=== PATIENT | male | born 1950 | race Caucasian/White ===

== ENCOUNTER 2016-12-27 23:12 | Emergency (ER) | payer OTHER ==
[2016-12-27 23:30] VITALS: BP 161/104; PULSE 94; TEMP 99.3; BMI 22.4
[2016-12-27] MEDS ORDERED: DOXYCYCLINE HYCLATE 100 MG CAPSULE PO ONE ×2 (23:47→23:48)
--- NOTE | 2016-12-27 23:51 | PDOC ---
History of Present Illness - General Chief Complaint: Pain, Acute Stated Complaint: I HAVE AN INFECTION Time Seen by Provider: 12/27/16 23:14 History Source: Patient Exam Limitations: No Limitations - History of Present Illness Initial Comments: 12/27/16 23:47 66y M history of DM, CAD s/p 2 stents, presents with complaint of worsening back pain/nodule for the past 5 days. The pt endorses subjective fvers, states he treated himself with amoxicillin without significant improvement, then started levaquin. The pt endorses subjective fever today some came to the ED for evaluation. The patient states it may have started off as a bug bite. 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 Past History - Past Medical History Allergies/Adverse Reactions: Allergies Allergy/AdvReac Type Severity Reaction Status Date / Time No Known Allergies Allergy Verified 12/27/16 23:19 Home Medications: Ambulatory Orders Amlodipine Besylate [Norvasc -] 5 mg PO DAILY 12/27/16 Atorvastatin Ca [Lipitor] 40 mg PO HS 12/27/16 Carvedilol [Coreg] 12.5 mg PO BID 12/27/16 Clopidogrel Bisulfate [Plavix -] 75 mg PO DAILY 12/27/16 Doxycycline Hyclate 100 mg PO BID #19 capsule 12/27/16 Fenofibrate Nanocrystallized [Tricor] 145 mg PO DAILY 12/27/16 Linagliptin [Tradjenta] 5 mg PO DAILY 12/27/16 Quinapril HCl [Accupril] 5 mg PO DAILY 12/27/16 Diabetes: Yes HTN: Yes Hypercholesterolemia: Yes - Psycho/Social/Smoking Cessation Hx Anxiety: No Suicidal Ideation: No Smoking History: Never smoked Have you smoked in the past 12 months: No Information on smoking cessation initiated: No Hx Alcohol Use: No Drug/Substance Use Hx: No Substance Use Type: None Review of Systems - Review of Systems Able to Perform ROS?: Yes Comments:: 12/27/16 23:47 Constitutional - +subjective fever no reported Chills, weakness, HEENT: no reported vision changes, sore throat Respiratory: no reported cough, sob, hemoptysis Cardiac: no reported chest pain, palpitations, light headedness, leg swelling Abd/GI: no reported abd pain, nausea, vomiting, blood per rectum, melena, diarrhea : no reported dysuria, frequency, discharge Musculskelatal - no reported back pain, joint swelling skin - +sin infection no reported bruising, erythema, rash neurological: no reported headache, numbness, focal weakness, tingling, ataxia, weakness hematologic: no reported anemia, easy bruising, easy bleeding *Physical Exam - Vital Signs Last Vital Signs Temp Pulse Resp BP Pulse Ox 99.3 F 94 H 16 161/104 96 12/27/16 23:26 12/27/16 23:26 12/27/16 23:26 12/27/16 23:26 12/27/16 23:26 - Physical Exam Comments: 12/27/16 23:48 GENERAL: The patient is awake, alert, and fully oriented, Nontoxic - in no acute distress. HEAD: Normocephalic, atraumatic. EYES: extraocular movements intact, sclera anicteric, conjunctiva clear. NECK: Normal range of motion, supple EXTREMITIES: Normal range of motion, no edema. No clubbing or cyanosis. No cords, erythema, or tenderness. SKIN: +4x4cm area of induration/redness/warmth on L posterior shoulder no streaking noted Procedures - Consent Consent obtained: Verbal - Incision and Drainage I&D Site: Left: Arm Anesthesia: 1% Lidocaine Volume(ml): 3 Blade Size: 11 Attempts: 1 Plain Packing: No Complications: none Dressing: Yes Medical Decision Making - Medical Decision Making 12/27/16 23:53 abscess on posterior shoulder drained will give doxycycline will have pt fu with pmd in 2 days for wound check return precautions were discussed I discussed the physical exam findings, ancillary test results and final diagnoses with the patient. I answered all of the patient's questions. The patient was satisfied with the care received and felt comfortable with the discharge plan and treatment plan. The patient will call their primary care physician within 24 hours to arrange follow-up and will return to the Emergency Department with any new, persistent or worsening symptoms. *DC/Admit/Observation/Transfer Diagnosis at time of Disposition: Abscess or cellulitis of shoulder - Discharge Dispostion Disposition: HOME Condition at time of disposition: Improved Admit: No - Prescriptions Prescriptions: Doxycycline Hyclate 100 mg PO BID #19 capsule - Referrals Referrals: Belgica Aggarwal MD [Staff Physician] - - Patient Instructions Printed Discharge Instructions: DI for Skin Abscess, DI for Incision and Drainage of a Skin Abscess Additional Instructions: Return to the emergency department immediately with ANY new, persistent or worsening symptoms including any fevers, increased redness or any other concerns. Take the antibiotics as prescribed You MUST call and follow up with your doctor in 2 days for further evaluation of your symptoms. Results were discussed with you. Please make sure your doctor reviews the results of your emergency evaluation. Print Language: INDIAN
== END 2016-12-27 23:54 | disposition home or self-care (01) ==
LOC: FER 23:12
PROC: 0H9CXZZ Drainage of Left Upper Arm Skin, External Approach (ICD-10-PCS; principal; 2016-12-27)
DX: L02.414 Cutaneous abscess of left upper limb (principal); E11.9 Type 2 diabetes mellitus without complications; I10 Essential (primary) hypertension; E78.00 Pure hypercholesterolemia, unspecified; I25.10 Atherosclerotic heart disease of native coronary artery without angina pectoris; Z95.5 Presence of coronary angioplasty implant and graft
CPT/HCPCS: 99281-25